=== PATIENT | male | born 2000 | race Caucasian/White ===

== ENCOUNTER 2024-12-27 22:08 | Emergency (ER) | payer BC, OTHER ==
[~2024-12-27] VITALS: Ht 167.6 cm; Wt 45.9 kg
[2024-12-27 23:43] VITALS: BP 140/89; PULSE 80; RESP 18; TEMP 98.6; O2SAT 99
== END 2024-12-27 23:44 | disposition home or self-care (01) ==
LOC: ER 22:10
DX: B34.9 Viral infection, unspecified (principal); Z20.822 Contact with and (suspected) exposure to COVID-19
CPT/HCPCS: 36415; 87502; 87503; 87811; 99283